=== PATIENT | female | born 1990 | race Two or more races ===

== ENCOUNTER 2017-03-06 12:34 | Inpatient (IN) | payer OTHER ==
[~2017-03-06] VITALS: Ht 175.3 cm; Wt 90.7 kg
[2017-03-06] MEDS ORDERED: FOLIC ACID1 MG PO (13:15)
== END 2017-03-11 11:41 | DRG 775 ==
LOC: LDR 03-09 06:46 → OB/GYN 03-09 06:46 → LDR 03-12 12:33
PROC: 10E0XZZ Delivery of Products of Conception, External Approach (ICD-10-PCS; principal; 2017-03-09)
PROC: 4A1HXCZ Monitoring of Products of Conception, Cardiac Rate, External Approach (ICD-10-PCS; 2017-03-09)
PROC: 4A033R1 Measurement of Arterial Saturation, Peripheral, Percutaneous Approach (ICD-10-PCS; 2017-03-09)
PROC: 10907ZC Drainage of Amniotic Fluid, Therapeutic from Products of Conception, Via Natural or Artificial Opening (ICD-10-PCS; 2017-03-09)
DX: O34.211 Maternal care for low transverse scar from previous cesarean delivery (principal); Z37.0 Single live birth; Z3A.38 38 weeks gestation of pregnancy; O99.820 Streptococcus B carrier state complicating pregnancy